=== PATIENT | male | born 1960 | race Two or more races ===

== ENCOUNTER 2020-06-02 15:23 | Outpatient (CLI) | payer OTHER | END 2020-06-02 16:20 | disposition home or self-care (01) | LOC: OFIC 805 15:23 | PROVIDERS: ATTEND Otolaryngology | DX: L30.8 Other specified dermatitis (principal); H61.23 Impacted cerumen, bilateral ==

== ENCOUNTER → 2020-07-13 | Outpatient (CLI) | payer OTHER | END | disposition home or self-care (01) | LOC: OFIC 805 07-01 15:00 | PROVIDERS: ATTEND Otolaryngology | DX: L30.8 Other specified dermatitis (principal); H61.23 Impacted cerumen, bilateral ==

== ENCOUNTER 2020-12-28 15:08 | Outpatient (CLI) | payer OTHER | END 2020-12-28 15:30 | disposition home or self-care (01) | LOC: OFIC 805 15:08 | PROVIDERS: ATTEND Otolaryngology Otology & Neurotology | DX: L30.8 Other specified dermatitis (principal); H61.23 Impacted cerumen, bilateral ==